=== PATIENT | female | born 1990 | race American Indian/Alaskan Native ===

== ENCOUNTER 2017-01-18 19:21 | Outpatient (CLI) | payer MEDICAID ==
[2017-01-18 19:35] VITALS: BP 125/71
== END 2017-01-18 21:30 | disposition home or self-care (01) ==
LOC: TRG 19:21 → LD 19:26 → TRG 21:30
PROVIDERS: ATTEND Obstetrics & Gynecology
DX: O26.893 Other specified pregnancy related conditions, third trimester (principal); M54.9 Dorsalgia, unspecified; M79.89 Other specified soft tissue disorders; R10.9 Unspecified abdominal pain; Z3A.37 37 weeks gestation of pregnancy

== ENCOUNTER 2017-01-28 00:45 | Outpatient (CLI) | payer MEDICAID ==
[2017-01-28 00:59] VITALS: BP 136/76
[2017-01-28] MEDS ORDERED: LACTATED RINGERS 1,000 ML IV SCH (02:09)
[2017-01-28] MEDS ORDERED: VISTARIL PO ONE (03:26)
[2017-01-28] MEDS ORDERED: VISTARIL ONE (03:29)
== END 2017-01-28 04:10 | disposition home or self-care (01) ==
LOC: TRG 00:45
PROVIDERS: ATTEND Obstetrics & Gynecology
DX: O62.9 Abnormality of forces of labor, unspecified (principal); Z3A.38 38 weeks gestation of pregnancy
CPT/HCPCS: Q0177

== ENCOUNTER 2017-01-28 07:48 | Outpatient (CLI) | payer MEDICAID ==
[2017-01-28] MEDS ORDERED: LACTATED RINGERS 1,000 ML IV SCH (09:00)
[2017-01-28] MEDS ORDERED: LACTATED RINGERS 1,000 ML ONE (10:21)
[2017-01-28] MEDS ORDERED: VISTARIL PO NR (11:00)
[2017-01-28] MEDS ORDERED: LACTATED RINGERS 1,000 ML IV ONE (12:00)
[2017-01-28] MEDS ORDERED: MORPHINE IM ONE (14:10)
[2017-01-28 15:18] VITALS: BP 141/82
== END 2017-01-28 14:40 | disposition home or self-care (01) ==
LOC: TRG 07:48
PROVIDERS: ATTEND Obstetrics & Gynecology
DX: Z34.93 Encounter for supervision of normal pregnancy, unspecified, third trimester (principal); Z3A.38 38 weeks gestation of pregnancy
CPT/HCPCS: 59025; 96360; 96372; J2270; J7120; Q0177

== ENCOUNTER 2017-01-30 05:42 | Inpatient (IN) | payer MEDICAID ==
--- NOTE | 2017-01-29 18:51 | History and Physical Report ---
History of Present Illness Date of examination: 01/30/17 Date of admission: 01/30/17 Chief complaint: SCHEDULED REPEAT SECTION History of present illness: This is a 26 yo at 39 weeks. She is a patient of [facility] since 8 weeks. During this she has endured chlamydia and trich treated and breanna neg. [facility] and noted to be normal. She had abn glucose and 3hr reported as neg Anemia on iron bid. 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 denies: smoking, alcohol abuse, prescription drug abuse - Obstetrical History Expected Date of Delivery: 02/06/17 Actual Gestation: 38 Week(s) 6 Day(s) : 3 Para: 1 Hx # Term Pregnancies: 1 Number of Pregnancies: 0 Spontaneous Abortions: 1 Induced : 1 Number of Living Children: 1 Medications and Allergies Allergies Allergy/AdvReac Type Severity Reaction Status Date / Time No Known Allergies Allergy Verified 01/28/17 02:12 Review of Systems All systems: negative - Physical Exam Breasts: Positive: normal Cardiovascular: Regular rate, Normal S1 Lungs: Positive: Clear to auscultation, Normal air movement Abdomen: Positive: normal appearance, soft, distention, tenderness, guarding, normal bowel sounds Genitourinary (Female): Positive: normal external genitalia, normal perenium Vulva: both: normal Vagina: Positive: normal moisture Uterus: Positive: normal size Adnexa: both: normal Anus/Rectum: Positive: normal perianal skin Extremities: Positive: normal Deep Tendon Reflex Grade: Normal +2 - Obstetrical FHR: auscultation normal Results All other labs normal. Assessment and Plan A/P IUP 39 weeks Desires repeat c/sec GBS + IVF and inital labs Ancef prior to delivery will proceed after discussion of r/b/a of repeat c/sec
[~2017-01-30 05:42] MED LIST: ANCEF/STERILE WATER 2 GM/20 ML 2 GM/20 ML SYRINGE IV NR; BICITRA PO SCH; PEPCID IV SCH; PITOCin/NS 20 UNIT/1000ML DRIP 20 UNITS/1,000 ML BAG IV SCH; REGLAN IV SCH
[2017-01-30] MEDS: LACTATED RINGERS 1,000 ML IV SCH ×2 (06:00→06:37)
[2017-01-30 06:14] LABS: Basophils % (Auto) 0.8 % (0.0-1.8); Eosinophils % (Auto) 1.5 % (0.0-4.3); Hematocrit 30.2 % (30.3-42.9); Hemoglobin 9.8 gm/dl (10.1-14.3); Mean Corpuscular HGB Conc 32 % (30-34); Mean Corpuscular Hemoglobin 26 pg (28-32); Mean Corpuscular Volume 81 fl (79-97); Platelet Count 327 K/mm3 (140-440); Red Blood Count 3.71 M/mm3 (3.65-5.03); Red Cell Distribution Width 17.4 % (13.2-15.2)
--- NOTE | 2017-01-30 07:03 | Anesthesia Consultation ---
Anesthesia Consult and Med Hx Date of service: 01/30/17 - Airway Anesthetic Teeth Evaluation: Good ROM Head & Neck: Adequate Mental/Hyoid Distance: Adequate Mallampati Class: Class III Intubation Access Assessment: Possibly Difficult - Pre-Operative Health Status ASA Pre-Surgery Classification: ASA3 Proposed Anesthetic Plan: Epidural, Spinal - Pulmonary Hx Asthma: Yes (childhood asthma) COPD: No Hx Pneumonia: No - Cardiovascular System Hx Hypertension: No - Central Nervous System Hx Seizures: No Hx Psychiatric Problems: No - Endocrine Hx Renal Disease: No Hx End Stage Renal Disease: No Hx Hypothyroidism: No Hx Hyperthyroidism: No - Hematic Hx Anemia: Yes (iron bid) Hx Sickle Cell Disease: No - Other Systems Hx Alcohol Use: No Hx Obesity: Yes (Morbid obesity, BMI 48.1)
--- NOTE | 2017-01-30 07:03 | Anesthesia Day of Surgery ---
Anesthesia Day of Surgery - Day of Surgery Patient Examined: Yes Patient H&P Reviewed: Yes Patient is NPO: Yes
[2017-01-30] MEDS ORDERED: NACL 0.9% IR ONE (07:28)
[2017-01-30] MEDS ORDERED: WATER FOR IRRIG STERILE IR ONE (07:28)
[2017-01-30] MEDS ORDERED: MORPHINE ONE (07:32)
[2017-01-30] MEDS ORDERED: PHENERGAN PR PRN (08:00)
[2017-01-30] MEDS ORDERED: SODIUM CHLORIDE FLUSH SYRINGE 10 ML IV PRN ×2 (08:00→10:00)
[2017-01-30] MEDS ORDERED: ZOFRAN IV PRN (08:00)
[2017-01-30] MEDS ORDERED: BENADRYL IV PRN (08:00)
[2017-01-30] MEDS ORDERED: NARCAN 0.4 MG/1 ML IV PRN ×2 (08:00→11:00)
[2017-01-30] MEDS ORDERED: DILAUDID IV PRN (08:00)
[2017-01-30] MEDS ORDERED: METHERGINE IM ONE (08:23)
[2017-01-30] MEDS ORDERED: DILAUDID ONE (08:28)
[2017-01-30] MEDS ORDERED: XYLOCAINE MPF 2% ONE (09:10)
--- NOTE | 2017-01-30 09:14 | Procedure Note ---
OB Delivery Note - Delivery Date of Delivery: 01/30/17 Surgeon: ROSANA TOLEDO Estimated blood loss: other (700cc) - Section Preop diagnosis: repeat Postop diagnosis: same section procedure: section Disposition: PACU Complications: none Narrative: see op note
--- NOTE | 2017-01-30 09:16 | Operative Report ---
Operative Report Operative Report: DATE OF OPERATION: 01/30/2017 PREOPERATIVE DIAGNOSES: 1. Intrauterine gestation at 39 weeks 2. Desires repeat section POSTOPERATIVE DIAGNOSES: 1. Intrauterine gestation at 39 weeks 2.Desires repeat section OPERATION PERFORMED: Repeat low transverse section. SURGEON: ROSANA TOLEDO MD ANESTHESIA: Spinal COMPLICATIONS: None. ESTIMATED BLOOD LOSS: 700 mL. DRAINS: Painting catheter to the bladder. SPECIMENS TO PATHOLOGY: Cord blood for routine testing. OPERATIVE FINDINGS: A viable female infant with Apgars of 8 and 9 and birthweight of 6 pounds 12. ounces was delivered from a cephalic presentation. The cord contained 3 vessels. There was normal anterior fundal placenta. The amniotic fluid was clear. The uterus , fallopian tubes and ovaries nl DESCRIPTION OF OPERATION: The patient was brought to the operating suite in stable condition with epidural anesthesia on board and an indwelling catheter in place in the bladder. The patient was placed supine on the operating room table and rolled to her left side with a wedge. The abdomen was prepped and draped in standard fashion for section. After testing with forceps to assure an adequate anesthetic level, the surgery was commenced. We had counseled the patient extensively regarding the risks of the surgery including but not limited to stroke, embolus, phlebitis, pain, infection, hemorrhage, as well as injury to the infant and the internal organs such as the bowel, bladder, blood vessels, nerves, kidneys, ureters and pelvic organs. The patient was aware of the postoperative morbidity issues and recovery timeframes. The patient was aware she can form adhesions, which can result in obstruction of loop of bowel or ureter or chronic pain. She was aware that should she have hemorrhage and require blood transfusion, there was a small chance for exposure to hepatitis or HIV disease. With the scalpel, a Pfannenstiel skin incision was made. Dissection was carried down sharply through the subcutaneous tissues and fascia in a transverse plane with the scalpel, electrocautery and curved Chaudhary scissors. The fascia was sharply freed up superiorly and inferiorly from the underlying rectus muscles, which were bluntly and sharply divided. The peritoneum was entered carefully in a clear space with a curved hemostat. The peritoneal incision was then extended vertically with Metzenbaum scissors. A retractor and bladder blade were placed. A bladder flap was created by incising transversely through the peritoneum and vesicouterine fold and then bluntly dissecting the bladder distally. With the scalpel, a low transverse hysterotomy was commenced. The serosa and myometrium were scored with the scalpel. The uterine cavity was actually entered bluntly with a curved hemostat. The uterine incision was then extended laterally with the paper cup handle machine operator's fingers. An intrauterine hand was placed and the head of the was brought up out of the pelvis into the uterine incision. With fundal pressure, she was delivered without difficulty. The nasopharynx and oropharynx were suctioned. The cord was doubly clamped and transected. The infant was then handed off to the nursery personnel. Apgars were good at 8 and 9. The placenta was manually removed. The uterine cavity was then curetted with a dry sponge and freed of the remaining membranes. The edges of the uterine incision were grasped with Hanna clamps. With the massage and the Pitocin, the uterus began to firm up normally. The uterine incision was then closed in 2 layers of 0 Vicryl sutures. The first suture was placed to the endometrium and myometrium. The second suture was placed through the endopelvic fascia and also reincorporated the bladder flap peritoneum. Peritoneal lavage was then performed. The pelvis and gutters were irrigated and suctioned and cleared of all blood and clots and amniotic fluid. The uterine incision was reinspected to assure hemostasis. The uterus, tubes and ovaries were inspected and were normal. Once we were satisfied with the hemostasis, attention was turned to closure of the abdominal incision. The peritoneum, muscles and fascia were closed in layers using 0-Vicryl sutures. The subcutaneous tissue was closed with 3-0 plain sutures. The skin was closed with a subcuticular suture of 4-0 Vicryl followed by benzoin, Steri-Strips and a Telfa dressing. The patient was moved to the recovery room in stable condition with the Painting catheter draining clear urine. Instruments, sponge and needle counts were reported as correct. Estimated blood loss was 1000 mL. There were no complications.
[2017-01-30] MEDS ORDERED: NEO SYNEPHRINE/NS Syringe(OR USE) IV ONE (09:30)
[2017-01-30] MEDS ORDERED: PITOCin/NS 20 UNIT/1000ML DRIP 20 UNITS/1,000 ML BAG IV SCH (10:00)
--- NOTE | 2017-01-30 10:15 | Post Anesthesia Evaluation ---
- Post Anesthesia Evaluation Patient Participated: Yes Airway Patent: Yes Stable Respiratory Function: Yes Nausea/Vomiting: No Temp > 96.8F: Yes Pain Manageable: Yes Adequeate Hydration: Yes Anesthesia Complications: No Block Receding Appropriately: Not Applicable Patient on Ventilator: No
[2017-01-30] MEDS ORDERED: TYLENOL PR PRN (10:30)
[2017-01-30] MEDS ORDERED: MORPHINE IV PRN ×2 (10:30→11:00)
[2017-01-30] MEDS ORDERED: TUCKS PAD TP PRN (11:00)
[2017-01-30] MEDS ORDERED: ANUCORT-HC PR PRN (12:00)
[2017-01-30] MEDS: TORADOL IV PRN ×2 (13:13→21:17)
[2017-01-30] MEDS: D5LR 1,000 ML IV SCH ×2 (13:14→21:31)
[2017-01-30] MEDS: MILK OF MAGNESIA PO PRN (21:16)
[2017-01-30] MEDS: MYLICON PO PRN (21:17)
[2017-01-30] MEDS: PERCOCET 5/325 PO PRN (21:23)
[2017-01-30 21:59] LABS: Hematocrit 29.5 % (30.3-42.9); Hemoglobin 9.7 gm/dl (10.1-14.3)
[2017-01-30] MEDS ORDERED: SENOKOT PO PRN (22:00)
[2017-01-31] MEDS ORDERED: BOOSTRIX IM ONE (06:00)
[2017-01-31] MEDS: PERCOCET 5/325 PO PRN ×3 (07:17→18:23)
[2017-01-31] MEDS: MOTRIN PO PRN ×2 (07:17→15:07)
--- NOTE | 2017-01-31 08:35 | Progress Note ---
Assessment and Plan A/P POD#1 s/p repeat csec doing well bleeding deecreased pain controlled ambultaing well uop appropriate h/h stable 9.8-9.7 Subjective - Subjective Date of service: 01/31/17 Principal diagnosis: Repeat Interval history: This is a 26 yo at 39 weeks. She is a patient of [facility] since 8 weeks. During this she has endured chlamydia and trich treated and breanna neg. [facility] and noted to be normal. She had abn glucose and 3hr reported as neg Anemia on iron bid. Patient reports: appetite normal, voiding normally, pain well controlled, flatus , ambulating normally : doing well Objective - Vital Signs Latest vital signs: Vital Signs Temp Pulse Resp BP BP Pulse Ox 01/31/17 02:39 98.6 F 75 18 91/47 96 01/31/17 01:52 98.5 F 99 H 19 106/54 100 01/30/17 22:25 98.9 F 95 H 18 100/39 99 01/30/17 17:08 98.0 F 88 18 112/70 100 01/30/17 10:30 97.9 F 78 123/78 01/30/17 10:15 74 13 125/70 100 01/30/17 10:12 97.9 F 81 117/61 100 01/30/17 10:10 79 15 117/61 100 01/30/17 10:05 72 14 120/74 99 01/30/17 10:00 77 12 119/67 99 01/30/17 09:55 77 21 120/66 100 01/30/17 09:50 76 16 112/69 100 01/30/17 09:45 86 13 120/66 100 01/30/17 09:40 67 17 117/60 100 01/30/17 09:35 80 18 118/69 98 01/30/17 09:30 78 13 110/63 100 01/30/17 09:29 83 17 106/61 98 01/30/17 09:23 74 17 110/64 98 01/30/17 09:20 81 15 110/64 98 01/30/17 09:18 92 H 18 116/56 99 01/30/17 09:15 97.7 F 89 16 116/56 99 Intake and Output 01/30/17 01/31/17 01/31/17 23:59 07:59 15:59 Intake Total 1000 Balance 1000 Intake: IV 1000 D5lr 1,000 ml @ 125 mls/ 1000 hr IV DIRECT [facility] Rx#: [id number] - Exam Breasts: Present: normal Cardiovascular: Present: Regular rate, Normal S1 Lungs: Present: Clear to auscultation, Normal air movement Abdomen: Present: normal appearance, soft, normal bowel sounds. Absent: distention, tenderness, guarding Vulva: both: normal Uterus: Present: normal, firm Extremities: Present: normal Deep Tendon Reflex Grade: Normal +2 Incision: Present: normal, dry, intact - Labs Labs: Abnormal lab results 01/30/17 Range/Units 21:33 Hgb 9.7 L (10.1-14.3) gm/dl Hct 29.5 L (30.3-42.9) %
[2017-01-31] MEDS: NORCO 5/325 PO PRN ×2 (09:48→15:08)
[2017-01-31] MEDS: PRENATAL VITAMIN PO SCH (09:49)
[2017-01-31] MEDS: FEOSOL PO SCH (09:49)
[2017-01-31] MEDS ORDERED: M-M-R II VACCINE SUB-Q ONE (11:00)
[2017-01-31] MEDS: MILK OF MAGNESIA PO PRN (12:39)
[2017-02-01] MEDS: MYLICON PO PRN (00:22)
[2017-02-01] MEDS: MOTRIN PO PRN ×3 (00:23→12:26)
[2017-02-01] MEDS: PERCOCET 5/325 PO PRN ×2 (06:26→12:25)
--- NOTE | 2017-02-01 08:00 | Progress Note ---
Assessment and Plan A/P POD#2 s/p repeat csec doing well bleeding decreased pain controlled ambulating well stable breast feeding d/c home this afternoon f/u in 2 weeks for incision check Subjective - Subjective Date of service: 02/01/17 Principal diagnosis: Repeat Interval history: This is a 26 yo at 39 weeks. She is a patient of [facility] since 8 weeks. During this she has endured chlamydia and trich treated and breanna neg. She has + [facility] and noted to be normal. She had abn glucose and 3hr reported as neg Anemia on iron bid. Patient reports: appetite normal, voiding normally, pain well controlled, flatus , ambulating normally : doing well, nursing well Objective - Vital Signs Latest vital signs: Vital Signs Temp Pulse Resp BP BP Pulse Ox 02/01/17 00:29 98.5 F 104 H 20 130/86 130/66 100 02/01/17 00:23 16 01/31/17 16:50 98.4 F 100 H 22 122/70 98 01/31/17 08:45 98.6 F 65 20 98/48 Intake and Output 01/31/17 01/31/17 02/01/17 15:59 23:59 07:59 Intake Total 240 360 Balance 240 360 Intake: Oral 240 360 Other: Total, Intake Amount 240 120 # Voids Void 1 1 - Exam Breasts: Present: normal Cardiovascular: Present: Regular rate, Normal S1 Lungs: Present: Clear to auscultation, Normal air movement Abdomen: Present: normal appearance, soft, normal bowel sounds. Absent: distention, tenderness, guarding Vulva: both: normal Uterus: Present: normal, firm, fundal height below umbilicus. Absent: bogginess , tenderness Extremities: Present: normal Deep Tendon Reflex Grade: Normal +2 Incision: Present: normal, dry, intact
--- NOTE | 2017-02-01 08:02 | Discharge Summary ---
Providers - Providers Date of Admission: 01/30/17 05:42 Date of discharge: 02/01/17 Attending physician: ROSANA TOLEDO MD Primary care physician: TIERA NEGRO Hospitalization Reason for admission: IUP at term Delivery: Procedure: repeat low transverse Episiotomy: none Laceration: none Incision: normal, dry, intact Other procedures: none complications: none Discharge diagnosis: IUP at term delivered baby: female Condition at discharge: Good Disposition: DC-01 TO HOME OR SELFCARE Plan - Provider Discharge Summary Activity: routine, no sex for 6 weeks, no strenuous exercise Diet: routine Instructions: routine Additional instructions: [] Smoking cessation referral if applicable(refer to patient education folder for contact #) [] Refer to [facility]'s [facility] Booklet Call your doctor immediately for: * Fever > 100.5 * Heavy vaginal bleeding ( >1 pad per hour) * Severe persistent headache * Shortness of breath * Reddened, hot, painful area to leg or breast * Drainage or odor from incision. * Keep incision clean and dry at all times and follow doctor's instructions regarding bathing/showering - Follow up plan Follow up: TIERA NEGRO MD [Primary Care Provider] - 14 Days
[2017-02-01] MEDS ORDERED: DULCOLAX PR PRN (10:00)
[2017-02-01 11:04] VITALS: BP 111/64
[2017-02-01] MEDS: PRENATAL VITAMIN PO SCH (12:27)
[2017-02-01] MEDS: FEOSOL PO SCH (15:53)
== END 2017-02-01 14:30 | disposition home or self-care (01) | DRG 765 ==
LOC: APU 05:42 → OB 10:45
PROVIDERS: ADMIT Obstetrics & Gynecology; ATTEND Obstetrics & Gynecology
PROC: 10D00Z1 Extraction of Products of Conception, Low, Open Approach (ICD-10-PCS; principal; 2017-01-30)
PROC: 3E0234Z Introduction of Serum, Toxoid and Vaccine into Muscle, Percutaneous Approach (ICD-10-PCS; 2017-01-30)
DX: O34.211 Maternal care for low transverse scar from previous cesarean delivery (principal); Z68.42 Body mass index [BMI] 45.0-49.9, adult; O99.824 Streptococcus B carrier state complicating childbirth; Z37.0 Single live birth; Z82.5 Family history of asthma and other chronic lower respiratory diseases; Z83.3 Family history of diabetes mellitus; Z3A.39 39 weeks gestation of pregnancy; O99.02 Anemia complicating childbirth; D64.9 Anemia, unspecified; O99.214 Obesity complicating childbirth; E66.01 Morbid (severe) obesity due to excess calories; Z23 Encounter for immunization
CPT/HCPCS: 36415; 85014; 85018; 85025; 86850; 86900; 86901; 99211; C9250; G0463; J0690; J1170; J1200; J1885; J2210; J2270; J2370; J2590; J2765; J7120; J7121